=== PATIENT | female | born 1995 | race Caucasian/White ===

== ENCOUNTER 2016-12-29 00:55 | Emergency (ER) | payer BC ==
[~2016-12-29] VITALS: Ht 170.2 cm; Wt 63.6 kg
[~2016-12-29 00:55] MED LIST: ALLEGRA-D 24HR1 T24 PO; CELEXA 20MG20 MG/TAB PO; MICROGESTIN 1.51 TAB PO; MULTI VITAMINS1 TAB PO
[2016-12-29 00:58] VITALS: BP 138/73; TEMP 97.9
[2016-12-29] MEDS ORDERED: JUNEL FE 1.5/301 TAB PO (01:01)
[2016-12-29] MEDS ORDERED: ALLEGRA-D 24HR1 T24 PO (01:01)
[2016-12-29 01:58] LABS: PH 5 (5-8); URINE APPEARANCE Cloudy; URINE BACTERIA None Seen /hpf; URINE BILIRUBIN Negative (NEGATIVE); URINE BLOOD 3+ (NEGATIVE); URINE COLOR Yellow; URINE GLUCOSE Negative (NEGATIVE); URINE KETONE Negative (NEGATIVE); URINE RBC >50 /hpf; URINE UROBILINOGEN Negative (NEGATIVE); URINE WBC >50 /hpf
[2016-12-29] MEDS ORDERED: PYRIDIUM200 M1 PO (02:45)
[2016-12-29] MEDS ORDERED: OMNICEF 300MG300 MG PO (02:45)
[2016-12-29 02:57] VITALS: PULSE 67
== END 2016-12-29 02:58 | disposition home or self-care (01) ==
LOC: COL.ER 00:55
PROVIDERS: Nurse Practitioner
DX: N39.0 Urinary tract infection, site not specified (principal); R31.9 Hematuria, unspecified; F32.9 Major depressive disorder, single episode, unspecified